=== PATIENT | female | born 1975 | race Caucasian/White ===

== ENCOUNTER → 2016-11-16 | Outpatient (CLI) | payer OTHER ==
[~2016-11-16] MED LIST: NEXIUM PO
--- NOTE | ~2016-11-16 | MR17 ---
[facility] A Service [facility] RADIOLOGY TEXT RESULTS PATIENT: EVERETT HERNDON LOCATION: [facility] : 73 UNIT #: [id number] AGE: [address]: Mely Escudero MD SEX: F ORDER DR: [id number] [place] [id number] O MR#: [id number] Acc #: [id number] NAME: EVERETT HERNDON. : 1975 SEX: F STUDY DATE/TIME: 11/16/2016 9:23 UNIT: [facility] ROOM: STUDY DESCRIPTION: MR Brain WWo Contrast Attending Physician: Mely Escudero M.D. Referring Physician: Mely Escudero M.D. Ordering Physician: Mely Escudero M.D. Primary Care Physician: Mely Escudero M.D. MRI CENTER REPORT This report is preliminary unless electronic signature is present. EXAM Brain MR with and without contrast. DATE OF STUDY 11/16/16 PROCEDURE Routine brain MRI with and without contrast. COMPARISON None. CLINICAL HISTORY Dizziness, lightheadedness, headache, and gait disturbance for 1 year. FINDINGS There is no MR evidence of acute ischemia or other restricted diffusion. There is no hydrocephalus or extraaxial fluid collection. Bone marrow signal is normal. The extracranial soft tissues are unremarkable. Normal flow voids are seen in the cerebral vessels. Brain parenchymal signal is normal. Postcontrast images show no mass or abnormal enhancement. IMPRESSION Normal brain MR with and without contrast. Dictated by... Mckay Moe M.D. THIS IS AN ELECTRONICALLY VERIFIED REPORT [facility] A Service [facility] RADIOLOGY TEXT RESULTS PATIENT: EVERETT HERNDON LOCATION: [facility] : 73 UNIT #: [id number] AGE: [address]: Mely Escudero MD SEX: F ORDER DR: Mckay Moe M.D. at 11/17/2016 3:57 PM TEV/pc TD: 11/17/2016 13:16 JOB #: [id number] MRI CENTER REPORT Page 1 of 1
== END | disposition home or self-care (01) ==
LOC: SMRI 09:15
DX: R51 Headache (principal); H53.9 Unspecified visual disturbance; H93.13 Tinnitus, bilateral; R41.3 Other amnesia; R42 Dizziness and giddiness; R26.9 Unspecified abnormalities of gait and mobility
CPT/HCPCS: 70553; A9581